=== PATIENT | female | born 1965 | race Caucasian/White ===

== ENCOUNTER 2023-02-21 13:38 | Emergency (ER) | payer MEDICARE, BC ==
[~2023-02-21] VITALS: Ht 177.8 cm; Wt 117.7 kg
[2023-02-21 16:29] LABS: BASOPHILS # (AUTO) 0.1 X10'3 (0-0.2); BASOPHILS % (AUTO) 1.2 % (0-1); EOSINOPHILS # (AUTO) 0.6 X10'3 (0-0.9); EOSINOPHILS % (AUTO) 13.3 % (0-6); HEMATOCRIT 23.3 % (35.0-45.0); HEMOGLOBIN 7.9 g/dl (12.0-16.0); LYMPHOCYTES # (AUTO) 0.7 X10'3 (1.1-4.8); LYMPHOCYTES % (AUTO) 14.8 % (21-51); MEAN CORPUSCULAR HEMOGLOBIN 32.6 PG (27.0-31.0); MEAN CORPUSCULAR HGB CONC 33.8 g/dL (33.0-36.5); MEAN CORPUSCULAR VOLUME 96.4 FL (78-98); MEAN PLATELET VOLUME 7.7 FL (7.4-10.4); MONOCYTES # (AUTO) 0.5 X10'3 (0-0.9); MONOCYTES % (AUTO) 10.5 % (2-12); NEUTROPHILS # (AUTO) 2.7 X10'3 (1.8-7.7); NEUTROPHILS % (AUTO) 60.2 % (42-75); PLATELET COUNT 102 X10'3 (140-440); RED BLOOD COUNT 2.42 X10'6 (4.20-5.60); RED CELL DISTRIBUTION WIDTH 19.7 % (11.5-14.5); WHITE BLOOD COUNT 4.4 X10'3 (4.5-11.0)
[2023-02-21 16:46] LABS: ALBUMIN 1.6 G/DL (3.4-5.0); ALBUMIN/GLOBULIN RATIO 0.5 (1.1-1.5); ALKALINE PHOSPHATASE 121 IU/L (46-116); ANION GAP 5 (8-16); ASPARTATE AMINO TRANSFERASE 34 U/L (10-37); BILIRUBIN,TOTAL 1.6 MG/DL (0.1-1.0); BLOOD UREA NITROGEN 22 MG/DL (7-18); CALCIUM 7.6 MG/DL (8.5-10.1); CHLORIDE 102 MMOL/L (99-107); GLUCOSE 95 MG/DL (70-104); LIPASE < 50 U/L (73-393); POTASSIUM 4.1 MMOL/L (3.5-5.1); SODIUM 136 MMOL/L (135-145); TOTAL CARBON DIOXIDE 29.2 MMOL/L (24-32); TOTAL PROTEIN 5.1 G/DL (6.4-8.2); eGFR 58 ML/MIN
[2023-02-21 17:04] LABS: ALANINE AMINOTRANSFERASE < 6 U/L (12-78)
[2023-02-21] MEDS: LIDOCAINE 2%/EPI 1:100,000 inj. Multi-dose 20 ML VIAL IJ ONE (18:11)
[2023-02-21 18:22] LABS: PLATELET ESTIMATE DECREASED
[2023-02-21 18:23] LABS: ANISOCYTOSIS 2+; POIKILOCYTOSIS 1+
--- NOTE | 2023-02-21 18:52 | NUR ---
SPOKE WITH PA REGARDING VITALS AND DILAUDID. [facility].
[2023-02-21] MEDS: HYDROmorphone 1 mg/ml syringe IV ONE (18:53)
[2023-02-21 19:16] VITALS: BP 116/60
--- NOTE | 2023-02-21 19:28 | NUR ---
report given to nurse at [facility]
== END 2023-02-21 20:04 | disposition home or self-care (01) ==
LOC: ER 13:39
DX: K74.60 Unspecified cirrhosis of liver (principal); R18.8 Other ascites; R10.84 Generalized abdominal pain; Z88.6 Allergy status to analgesic agent; Z88.0 Allergy status to penicillin
CPT/HCPCS: 36415; 49083; 80053; 83690; 85008; 85025; 96374; 99285; J1170